=== PATIENT | female | born 1945 | race Caucasian/White ===

== ENCOUNTER → 2016-05-07 | Outpatient (CLI) | payer MEDICARE, BC ==
[~2016-05-07] MED LIST: AMIT100T2 PO; AMOX1TAB12 PO; ASPI-860 PO; BIOT5TAB PO; BLAC80CA PO; CHOL100045 PO; MULT-1034 PO; MULT-166 PO; OMG1KC PO; POTA99TA16 PO
--- NOTE | 2016-05-07 18:35 | Urgent Care T Sheet Gen (E) ---
Intake General Temperature (Fahrenheit): 98.1 Pulse: 120 Blood Pressure Systolic: 160 Blood Pressure Diastolic: 77 Respirations: 24 SPO2: 96 Source: Patient History of Present Illness Initial Comments Pt notes that for the last 1 week she has had sinus congestion and pressure. Notes that the last 2 days she has had increasing left ear pain. She notes that she thinks she has run a low grade fever. No cough. She has been taking multiple OTC cough and cold medications. Allergies: Coded Allergies: No Known Allergies (Verified Allergy, Unknown, 11/18/15) Home Meds Active Scripts Amoxicillin/Clavulanate Potassium (Augmentin 875mg/125mg)1 Each Tablet1 Tab PO BID Infection #20 TAB Ref 0 Prov:ДМИТРИЙ NAILS 05/07/16 Reported Medications Potassium Gluconate (Potassium)99 Mg [id number] Mg PO DAILY 07/14/14 Multivitamin With Minerals (Multivitamins With Minerals)1 Each Tablet1 Each PO DAILY 07/14/14 Biotin 5 Mg Tablet5 Mg PO DAILY 07/14/14 Aspirin 81 Mg Tablet.dr81 Mg PO DAILY 07/14/14 Amitriptyline HCl 100 Mg [id number] Mg PO HS 07/14/14 Cholecalciferol (Vitamin D3) (Vitamin D)1,000 Unit Tablet1,000 Unit PO DAILY 07/14/14 [place] 3 Polyunsat Fatty Acids (Fish Oil)1,000 Mg Cap1,000 Mg PO DAILY 07/14/14 Mu-Vits-Min Th/Lycopene/Lutein (Centrum Silver Tablet)1 Each Tablet1 Each PO DAILY 07/14/14 Black Cohosh Root Extract (Black Cohosh Extract)80 Mg [id number] Mg PO DAILY 07/14/14 Respiratory Constitutional Symptoms: See HPI EENTM: See HPI Ear pain Nose Congestion Respiratory: No symptoms reported Cardiovascular: No symptoms reported Gastrointestinal/Abdominal: No symptoms reported Skin: No symptoms reported All Other Systems Reviewed Remaining Systems: All other systems reviewed with negative findings Past Seouyqd-Ltchsy-Dnreyw Hx Patient's Social History Alcohol Use: Denies Use Smoking Status: Current every day smoker Recent foreign travel: No Surgeries/Hospitalizations Hospitalization/Surgery Hx: Hyst colonoscopy fractured patella, TONSILECTOMY, ADNOIDS Respiratory Respiratory History: None Cardiovascular Cardiovascular History: Hypercholesterolemia Reproductive System Sexually Transmitted Diseases: No Gastrointestinal GI/Endocrine History: None Diabetes Diabetes: No HEENT Impaired Vision: Glasses Hearing Impaired: None Psychosocial Behavior Disorders: None Physical Exam Physical Exam General Appearance: WD/WN No apparent distress Eyes, Ears, Nose, Throat Ex: PERRL/EOMI Pharynx normal TM abnormal (R) (dull TM but no erythema) TM abnormal (L) (erythematous with dull light reflex) Neck Exam: Non tender Full range of motion Normal inspection Normal thyroid Respiratory Exam: Lungs clear Normal breath sounds Cardiovascular Exam: Regular rate, rhythm No edema Departure Urgent Care Impression Impression: Primary Impression: Otitis media Qualified Code: H66.002 - Acute suppurative otitis media without spontaneous rupture of ear drum, left ear Departure Disposition: HOME OR SELF-CARE Condition: Stable Referrals: Jason Rain MD (PCP) Additional Instructions: Take Augmentin 875mg 1 po bid x 10 days. Discontinue OTC cough and cold medications as her BP is elevated. Recheck BP with PCP in 1-2 days. Return to ER or UC if symptoms get worse or further concern. Discharge instructions verbally given to patient. Patient verbalizes understanding of discharge instructions. Scripts Amoxicillin/Clavulanate Potassium (Augmentin 875mg/125mg)1 Each Tablet1 Tab PO BID Infection #20 TAB Ref 0 Prov:ДМИТРИЙ NAILS 05/07/16 End of report . ДМИТРИЙ NAILS May 07, 2016 18:35
[2016-05-08 19:41] VITALS: BP 160/77
== END ==
LOC: MHUC 18:03
PROVIDERS: ATTEND Physician Assistant
DX: H66.002 Acute suppurative otitis media without spontaneous rupture of ear drum, left ear (principal)
CPT/HCPCS: 99213